=== PATIENT | female | born 1995 ===

== ENCOUNTER 2017-07-24 15:07 | Emergency (ER) | payer OTHER ==
[~2017-07-24] VITALS: Ht 157.5 cm; Wt 104.3 kg
[~2017-07-24 15:07] MED LIST: Ibuprofen PO; NITR-65 PO; ONDA-42 SL; PREN1TAB71 PO
--- OUTSIDE RECORDS SUMMARY | 2017-07-24 15:12 | XMS REPORT ---
Author Author MESHA GRUBER Organization [employer] Address Unknown Phone Unavailable Care Team Providers Care Contract Writer Name Role Phone MESHA GRUBER CP Unavailable Allergies, Adverse Reactions, Alerts Substance Reaction Event Type N.K.D.A. Info Not Available Non Drug Allergy Problems Problem Type Condition Code Onset Dates Condition Status Assessment Obesity due to excess calories, unspecified obesity severity E66.09 Active Problem Obesity due to excess calories, unspecified obesity severity E66.09 Active Medications Medication Code System Code Instructions Start Date End Date Status Dosage Phentermine HCl [facility] [address]-39 37.5 MG Orally Once a day Mar 03, 2016 1 tablet Procedures Procedure Coding System Code Date Office Visit, Est Pt., Level 3 CPT-4 23438 Mar 03, 2016 Vital Signs Date/Time: Mar 03, 2016 Cardiac Monitoring Heart Rate 88 bpm Weight 209.9 lbs Height 62 in BMI 38.39 Index Blood Pressure Diastolic 80 mmHg Blood Pressure Systolic 132 mmHg Results No Known Results Summary Purpose [employer] Submission
--- OUTSIDE RECORDS SUMMARY | 2017-07-24 15:12 | XMS REPORT ---
Author Author MESHA GRUBER Organization [employer] Address Unknown Phone Unavailable Care Team Providers Care Title One Reading Teacher Name Role Phone MESHA GRUBER CP Unavailable [...] Date End Date Status Dosage Phentermine HCl [facility] [address]-06 37.5 MG Orally Once a day Feb 19, 2016 1 tablet Procedures Procedure Coding System Code Date Office Visit, Est Pt., Level 3 CPT-4 21590 Jan 22, 2016 Vital Signs Date/Time: Jan 22, 2016 Cardiac Monitoring Heart Rate 84 bpm Weight 207.9 lbs Height 62 in BMI 38.02 Index Blood Pressure Diastolic 80 mmHg Blood Pressure Systolic 130 mmHg Results No Known Results Summary Purpose [employer] Submission
--- OUTSIDE RECORDS SUMMARY | 2017-07-24 15:12 | XMS REPORT ---
Author Author MESHA GRUBER [facility] Address [address] [place] [address] Care Team Providers Care Node Js Developer Name Role Phone MESHA GRUBER Unavailable PROBLEMS Type Condition ICD9-CM Code [id number] Code Onset Dates Condition Status SNOMED Code Problem Obesity due to excess calories, unspecified obesity severity E66.09 Active 334629674 ALLERGIES No Known Allergies SOCIAL HISTORY Never Assessed PLAN OF CARE Activity Details Follow Up 4 Weeks Reason:weight VITAL SIGNS Height 62 in 2016-09-28 Weight 219 lbs 2016-09-28 Temperature 98.2 degrees Fahrenheit 2016-09-28 Heart Rate 90 bpm 2016-09-28 Respiratory Rate 18 2016-09-28 BMI 40.05 kg/m2 2016-09-28 Blood pressure systolic 124 mmHg 2016-09-28 Blood pressure diastolic 84 mmHg 2016-09-28 MEDICATIONS Medication Instructions Dosage Frequency Start Date End Date Duration Status Phentermine HCl 37.5 MG Orally Once a day 1 tablet 24h Active RESULTS No Results PROCEDURES No Known procedures IMMUNIZATIONS No Known Immunizations MEDICAL (GENERAL) HISTORY Type Description Date Medical History denies Hospitalization History child
--- OUTSIDE RECORDS SUMMARY | 2017-07-24 15:12 | XMS REPORT ---
Author Author MESHA GRUBER Organization [employer] Address Unknown Phone Unavailable Care Team Providers Care Commercial Journeyman Electrician Name Role Phone MESHA GRUBER CP Unavailable [...] Date End Date Status Dosage Phentermine HCl [facility] [address]-23 37.5 MG Orally Once a day December 25, 2015 Jan 22, 2016 1 tablet Procedures Procedure Coding System Code Date Office Visit, New Pt., Level 2 CPT-4 99840 December 25, 2015 Vital Signs Date/Time: December 25, 2015 Cardiac Monitoring Heart Rate 84 bpm Weight 222.5 lbs Height 62 in BMI 40.69 Index Blood Pressure Diastolic 82 mmHg Blood Pressure Systolic 128 mmHg Results No Known Results Summary Purpose [employer] Submission
--- OUTSIDE RECORDS SUMMARY | 2017-07-24 15:12 | XMS REPORT ---
Author Author OMA WINTERS [facility] Address Unknown Care Team Providers Care Christmas Bell Ringer Name Role Phone OMA WINTERS Unavailable PROBLEMS Type Condition ICD9-CM Code [id number] Code Onset Dates Condition Status SNOMED Code Problem Obesity due to excess calories, unspecified obesity severity E66.09 Active 773461394 Assessment Dental examination Z01.20 Mar, Active 18964727 ALLERGIES Unknown Allergies SOCIAL HISTORY No smoking Hx information available PLAN OF CARE VITAL SIGNS MEDICATIONS Unknown Medications RESULTS No Results PROCEDURES Procedure Date Ordered Related Diagnosis Body Site Billing Notes on claim Apr 02, 2016 IMMUNIZATIONS No Known Immunizations
--- OUTSIDE RECORDS SUMMARY | 2017-07-24 15:12 | XMS REPORT ---
Author Author OMA WINTERS [facility] Address Unknown Care Team Providers Care Marketing Developer Name Role Phone OMA WINTERS Unavailable PROBLEMS Type Condition ICD9-CM Code LOP19-SH Code Onset Dates Condition Status SNOMED Code Problem Obesity due to excess calories, unspecified obesity severity E66.09 Active 302568705 Assessment Dental examination Z01.20 Dec, Active 457145195 ALLERGIES Substance Reaction Event Type Date Status N.K.D.A. Unknown Non Drug Allergy Dec, Unknown SOCIAL HISTORY No smoking Hx information available PLAN OF CARE VITAL SIGNS Height 62 in 2016-01-09 Blood pressure systolic 119 mmHg 2016-01-09 Blood pressure diastolic 75 mmHg 2016-01-09 MEDICATIONS Medication Instructions Dosage Frequency Start Date End Date Duration Status Phentermine HCl 37.5 MG Orally Once a day 1 tablet 24h Nov,Dec 28 days Active RESULTS No Results PROCEDURES Procedure Date Ordered Related Diagnosis Body Site LTD ORAL EVALUATION - PROBLEM FOCUS Jan 09, 2016 INTRAORL-PERIAPICAL 1 FILM 63860 Jan 09, 2016 PANORAMIC FILM SEE ALSO CODE 54226 Jan 09, 2016 IMMUNIZATIONS No Known Immunizations
--- OUTSIDE RECORDS SUMMARY | 2017-07-24 15:13 | XMS REPORT | Continuity of Care Document ---
Author Author [facility] Address Unknown Phone Unavailable Allergies Active Description Code Type Severity Reaction Onset Reported/Identified Relationship to Patient Clinical Status Yes No Known Drug Allergies [id number] Drug Allergy Unknown N/A 08/22/2013 Medications There is no data. Problems Date Dx Coded Attending Type Code Diagnosis Diagnosed By 12/30/2010 MEL GREEN APRN 372.14 CONJUNCTIVITIS CHRONIC ALLERGIC 12/30/2010 MEL GREEN APRN 477.9 ALLERGIC RHINITIS 04/09/2011 MEL GREEN APRN 599.0 URINARY TRACT INFECTION 04/09/2011 MEL GREEN APRN V25.9 CONTRACEPTION MANAGEMENT 04/01/2012 MEL GREEN APRN 133.0 SCABIES 08/22/2013 LEIGH BARNES DO Ot 558.9 NONINF GASTROENTERIT NEC 08/22/2013 LEIGH BARNES DO Ot 599.0 URIN TRACT INFECTION NOS 08/22/2013 LEIGH BARNES DO Ot 646.63 INFECTION-ANTEPARTUM 08/22/2013 LEIGH BARNES DO Ot 648.93 OTH CURR COND-ANTEPARTUM 08/22/2013 LEIGH BARNES DO Ot 787.01 NAUSEA WITH VOMITING 10/04/2013 MAN MCCLELLAND, CARMEN Fernando Ot 620.2 OVARIAN CYST NEC/NOS 10/04/2013 MAN MCCLELLAND, CARMEN Fernando Ot 646.83 PREG COMPL NEC-ANTEPART 10/04/2013 MAN MCCLELLAND, CARMEN Fernando Ot 789.00 ABDOMINAL PAIN, UNSPECIFIED SITE 02/12/2014 MAN MCCLELLAND, CARMEN Fernando Ot 558.9 NONINF GASTROENTERIT NEC 02/12/2014 MAN MCCLELLAND, CARMEN Fernando Ot 646.83 PREG COMPL NEC-ANTEPART 03/02/2014 MAN MCCLELLAND, CARMEN Fernando Ot 285.9 ANEMIA NOS 03/02/2014 MAN MCCLELLAND, CARMEN Fernando Ot 648.21 ANEMIA-DELIVERED 03/02/2014 CARMEN CONWAY MD Ot V27.0 DELIVER-SINGLE LIVEBORN 05/13/2014 MAN MCCLELLAND, CARMEN Fernando Ot 486 07/02/2014 MAN MCCLELLAND, CARMEN Fernando Ot 486 07/11/2014 MAN MCCLELLAND, CARMEN Fernando Ot 486 04/20/2015 MAN MCCLELLAND, CARMEN Feranndo Ot O70.0 FIRST DEGREE PERINEAL LACERATION DURING 04/20/2015 MAN MCCLELLAND, CARMEN Fernando Ot Z23 ENCOUNTER FOR IMMUNIZATION 04/20/2015 MAN MCCLELLAND, CARMEN Fernando Ot Z37.0 SINGLE LIVE 04/20/2015 MAN MCCLELLAND, CARMEN Fernando Ot Z3A.39 39 WEEKS GESTATION OF 04/21/2015 CARMEN CONWAY MD Ot 642.93 04/21/2015 CARMEN CONWAY MD Ot 646.83 04/21/2015 MAN MCCLELLAND, CARMEN Fernando Ot 783.21 04/21/2015 CARMEN CONWAY MD Ot 784.0 04/21/2015 CARMEN CONWAY MD Ot 787.01 04/21/2015 CARMEN CONWAY MD Ot V28.81 04/21/2015 Ot 620.2 04/21/2015 Ot 646.83 04/21/2015 Ot 789.00 04/21/2015 MAN MCCLELLAND, CARMEN Fernando Ot V28.81 04/21/2015 MAN MCCLELLAND, CARMEN Fernando Ot 486 04/21/2015 MAN MCCLELLAND, CARMEN Fernando Ot V22.1 04/21/2015 MAN MCCLELLAND, CARMEN Fernando Ot V28.81 05/06/2015 MAN MCCLELLAND, CARMEN Fernando Ot 642.93 05/06/2015 MAN MCCLELLAND, CARMEN Fernando Ot 646.83 05/06/2015 MAN MCCLELLAND, CARMEN Fernando Ot 783.21 05/06/2015 MAN MCCLELLAND, CARMEN Fernando Ot 784.0 05/06/2015 MAN MCCLELLAND, CARMEN Fernando Ot 787.01 05/06/2015 MAN MCCLELLAND, CARMEN Fernando Ot V28.81 05/06/2015 Ot 620.2 05/06/2015 Ot 646.83 05/06/2015 Ot 789.00 05/06/2015 MAN MCCLELLAND, CARMEN Fernando Ot V28.81 05/06/2015 MAN MCCLELLAND, CARMEN Fernando Ot 486 05/06/2015 MAN MCCLELLAND, CARMEN Fernando Ot V22.1 05/06/2015 MAN MCCLELLAND, CARMEN Fernando Ot V28.81 05/06/2015 MAN MCCLELLAND, CARMEN Fernando Ot 642.93 05/06/2015 MAN MCCLELLAND, CARMEN Fernando Ot 646.83 05/06/2015 MAN MCCLELLAND, CARMEN J Ot 783.21 05/06/2015 MAN MCCLELLAND, CARMEN J Ot 784.0 05/06/2015 MAN MCCLELLAND, CARMEN J Ot 787.01 05/06/2015 MAN MCCLELLAND, CARMEN J Ot V28.81 05/06/2015 Ot 620.2 05/06/2015 Ot 646.83 05/06/2015 Ot 789.00 05/06/2015 MAN MCCLELLAND, CARMEN J Ot V28.81 05/06/2015 MAN MCCLELLAND, CARMEN J Ot 486 05/06/2015 MAN MCCLELLAND, CARMEN J Ot V22.1 05/06/2015 MAN MCCLELLAND, CARMEN J Ot V28.81 05/19/2015 MAN MCCLELLAND, CARMEN J Ot 642.93 05/19/2015 MAN MCCLELLAND, CARMEN J Ot 646.83 05/19/2015 MAN MCCLELLAND, CARMEN J Ot 783.21 05/19/2015 MAN MCCLELLAND, CARMEN J Ot 784.0 05/19/2015 MAN MCCLELLAND, CARMEN J Ot 787.01 05/19/2015 MAN MCCLELLAND, CARMEN J Ot V28.81 05/19/2015 Ot 620.2 05/19/2015 Ot 646.83 05/19/2015 Ot 789.00 05/19/2015 MAN MCCLELLAND, CARMEN J Ot V28.81 05/19/2015 MAN MCCLELLAND, CARMEN J Ot 486 05/19/2015 MAN MCCLELLAND, CARMEN J Ot V22.1 05/19/2015 MAN MCCLELLAND, CARMEN J Ot V28.81 05/27/2015 MAN MCCLELLAND, CARMEN J Ot 642.93 05/27/2015 MAN MCCLELLAND, CARMEN J Ot 646.83 05/27/2015 MAN MCCLELLAND, CARMEN J Ot 783.21 05/27/2015 MAN MCCLELLAND, CARMEN J Ot 784.0 05/27/2015 MAN MCCLELLAND, CARMEN J Ot 787.01 05/27/2015 MAN MCCLELLAND, CARMEN J Ot V28.81 05/27/2015 Ot 620.2 05/27/2015 Ot 646.83 05/27/2015 Ot 789.00 05/27/2015 MAN MCCLELLAND, CARMEN J Ot V28.81 05/27/2015 MAN MCCLELLAND, CARMEN J Ot 486 05/27/2015 MAN MCCLELLAND, CARMEN J Ot V22.1 05/27/2015 MAN MCCLELLAND, CARMEN J Ot V28.81 12/04/2015 MAN MD, CARMEN J Ot 642.93 HYPERTENS NOS-ANTEPARTUM 12/04/2015 CARMEN CONWAY MD Ot 646.83 PREG COMPL NEC-ANTEPART 12/04/2015 CARMEN CONWAY MD Ot 783.21 LOSS OF WEIGHT 12/04/2015 CARMEN CONWAY MD Ot 784.0 HEADACHE 12/04/2015 CARMEN CONWAY MD Ot 787.01 NAUSEA WITH VOMITING 12/04/2015 CARMEN CONWAY MD Ot V28.81 ENCOUNTER FOR ANATOMIC SURVEY 12/04/2015 Ot 620.2 OVARIAN CYST NEC/NOS 12/04/2015 Ot 646.83 PREG COMPL NEC-ANTEPART 12/04/2015 Ot 789.00 ABDOMINAL PAIN, UNSPECIFIED SITE 12/04/2015 CARMEN CONWAY MD Ot V28.81 ENCOUNTER FOR ANATOMIC SURVEY 12/04/2015 CARMEN CONWAY MD Ot 486 PNEUMONIA, ORGANISM NOS 12/04/2015 CARMEN CONWAY MD Ot V22.1 SUPERVIS OTH NORMAL PREG 12/04/2015 CARMEN CONWAY MD Ot V28.81 ENCOUNTER FOR ANATOMIC SURVEY 12/04/2015 CARMEN CONWAY MD Ot V28.81 ENCOUNTER FOR ANATOMIC SURVEY Procedures Code Description Performed By Performed On 73.59 03/01/2014 [id number] 04/18/2015 Results There is no data. Encounters ACCT No. Visit Date/Time Discharge Status Pt. Type Provider Facility Loc./Unit Complaint [id number] 04/01/2012 10:01:00 04/01/2012 23:59:59 CLS Outpatient MEL GREEN APRN [id number] 04/18/2015 07:41:00 04/20/2015 12:14:00 DIS Inpatient CARMEN CONWAY MD [facility] LDRP [id number] 12/09/2014 12:10:00 12/09/2014 23:59:59 CLS Outpatient CARMEN CONWAY MD [facility] RAD [id number] 12/06/2014 11:37:00 12/06/2014 23:59:59 CLS Outpatient CARMEN CONWAY MD [facility] LAB [id number] 05/09/2014 10:49:00 05/09/2014 23:59:59 CLS Outpatient CARMEN CONWAY MD [facility] RAD [id number] 02/28/2014 14:37:00 03/02/2014 16:00:00 DIS Inpatient CARMEN CONWAY MD [facility] LDRP [id number] 02/12/2014 14:27:00 02/12/2014 16:55:00 DIS Outpatient CARMEN CONWAY MD [facility] WSo [id number] 10/19/2013 10:02:00 10/19/2013 23:59:59 CLS Outpatient CARMEN CONWAY MD [facility] RAD [id number] 07/06/2013 14:26:00 10/04/2013 00:01:00 DIS Outpatient CARMEN CONWAY MD [facility] RAD [id number] 09/12/2013 11:05:00 09/12/2013 23:59:59 CLS Outpatient CARMEN CONWAY MD [facility] RAD [id number] 08/28/2013 11:27:00 08/28/2013 23:59:59 CLS Outpatient CARMEN CONWAY MD [facility] LAB [id number] 08/22/2013 11:18:00 08/22/2013 13:46:00 DIS Emergency MOLLY QUINONES LEIGH Graham [facility] ER [id number] 10/05/2013 14:00:00 Document Registration
--- NOTE | 2017-07-24 15:53 | ED Back Pain ---
General Chief Complaint: Back Problems Stated Complaint: LOWER BACK INJ Nursing Triage Note: c/o low back pain. 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 Pt in no acute distress. Nursing Sepsis Screen: No Definite Risk Source of Information: Patient, Other (patient's coworker.) Exam Limitations: No Limitations History of Present Illness Date Seen by Provider: Jul 24, 2017 Time Seen by Provider: 15:49 Initial Comments This 22-year-old female presents after 6 a.m. 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 Patient denies weakness or paresthesias in her lower extremities. She denies loss of bowel or bladder function. Patient denies similar injury in the past. Patient's pain is sharp in nature and made worse with movement of the low back. Allergies and Home Medications Allergies Coded Allergies: No Known Drug Allergies (Unverified , 08/22/13) Home Medications Vit/Fe Fumarate/Fa 1 Each Tablet, 1 EACH PO DAILY, (Reported) [Ibuprofen] 600 MG TAB, 600 MG PO Q6H Prescribed by: CARMEN CONWAY on 03/02/14 0855 Constitutional: No chills, No fever EENTM: No ear pain Respiratory: No cough Cardiovascular: No chest pain Gastrointestinal: No abdominal pain, No nausea, No vomiting Genitourinary: no symptoms reported Musculoskeletal: see HPI, back pain Skin: No rash Psychiatric/Neurological: No Symptoms Reported Past Tzdlodl-Ffupnc-Rwumxo Hx Patient Social History Alcohol Use: Denies Use Recreational Drug Use: No Smoking Status: Never a Smoker Recent Foreign Travel: No Contact w/Someone Who Travel: No Recent Infectious Disease Expo: No Immunizations Up To Date Tetanus Booster (TDap): Unknown PED Vaccines UTD: Yes Date of Influenza Vaccine: Mar 03, 2015 Surgeries History of Surgeries: No Respiratory History of Respiratory Disorde: No Cardiovascular History of Cardiac Disorders: No Neurological History of Neurological Disord: No Reproductive System Hx Reproductive Disorders: No Gastrointestinal History of Gastrointestinal Di: No Musculoskeletal History of Musculoskeletal Dis: No Endocrine History of Endocrine Disorders: No Cancer History of Cancer: No Psychosocial History of Psychiatric Problem: No Integumentary History of Skin or Integumenta: No Blood Transfusions History of Blood Disorders: No Reviewed Nursing Assessment Reviewed/Agree w Nursing PMH: Yes Family Medical History Family Medial History: Congenital disease G8 BROTHER (Hemophelia) G8 BROTHER (Hemophelia) Diabetes mellitus 19 FATHER 19 MOTHER Hypertension 19 FATHER No Family History of: AIDS Abdominal aortic aneurysm [place]'s disease Alcoholism Alzheimer's disease Aphasia Arthritis Asthma Cancer of mouth Cardiovascular disease Cataracts Colon cancer Completed stroke Congenital heart disease Coronary thrombosis Cystic fibrosis Deafness or hearing loss Dementia Drug abuse Dysphasia Fibrocystic disease of breast Gastroenteritis Glaucoma Headache disorder Hypercholesterolemia Infertility Kidney disease Myocardial infarction Neoplasm Not obtainable due to adoption Osteoporosis Parkinson's disease Prostate cancer Psychosocial problem Respiratory disorder Seizure disorder Severe allergy Thyroid disease Tuberculosis Visual disorder Physical Exam Vital Signs Vital Signs - First Documented 07/24/17 15:23 Temp 97.5 Pulse 70 Resp 16 B/P (MAP) 130/96 (107) Pulse Ox 98 O2 Delivery Room Air Capillary Refill : Less Than 3 Seconds General Appearance: No Apparent Distress, WD/WN HEENT: Normal ENT Inspection Neck: Normal Inspection Cardiovascular: Regular Rate, Rhythm Respiratory: Lungs Clear Gastrointestinal: Normal Bowel Sounds, Non Tender Back: Normal Inspection, Muscle Spasm (there is pain over the lower lumbar region. There is no posterior process tenderness. There is a normal neurovascular exam lower extremities.) Extremity: Normal Inspection, Normal Range of Motion Neurologic/Psychiatric: Alert, Oriented x3, No Motor/Sensory Deficits, Normal Mood/Affect Skin: Normal Color, Warm/Dry Progress/Results/Core Measures Results/Orders Vital Signs/I&O Vital Sign - Last 12Hours 07/24/17 15:23 Temp 97.5 Pulse 70 Resp 16 B/P (MAP) 130/96 (107) Pulse Ox 98 O2 Delivery Room Air Blood Pressure Mean: 107 Progress Note : Time: 15:54 Progress Note The patient declined radiographs. He did not want a shot for her pain. I recommended close follow-up with Torri in the morning at 9 a.m. I gave the patient a prescription for Flexeril and hydrocodone for tonight. I asked that she call or return if any problems or questions. Departure Impression Impression: Primary Impression: Back strain Qualified Codes: S39.012A - Strain of muscle, fascia and tendon of lower back , initial encounter Disposition: 01 HOME, SELF-CARE Condition: Unchanged Departure-Patient Inst. Decision time for Depature: 15:55 Referrals: NO,LOCAL PHYSICIAN (PCP) Primary Care Physician Patient Instructions: Low Back Pain (DC), Lumbar Muscle Strain (DC) Add. Discharge Instructions: Vicodin and Flexeril. Follow-up with Dr. Saenz the morning. Ice to the low back today. Return if any problems or questions. All discharge instructions reviewed with patient and/or family. Voiced understanding. CHAO RICHEY MD Jul 24, 2017 15:53
[2017-07-24 16:18] VITALS: BP 130/96
== END 2017-07-24 16:18 | disposition home or self-care (01) ==
LOC: EDUNIT# 15:07 → ER 15:08
DX: S39.012A Strain of muscle, fascia and tendon of lower back, initial encounter (principal); X50.0XXA Overexertion from strenuous movement or load, initial encounter

== ENCOUNTER → 2022-06-10 | Outpatient (CLI) | payer BC ==
--- NOTE | 2022-06-10 16:18 | Diagnostic Imaging Report ---
INDICATION: High fundal height for dates. TECHNIQUE: Multiple real-time grayscale images were obtained over the gravid uterus. COMPARISON: None. FINDINGS: There is a single live fetus in a cephalic presentation. heart rate was recorded at 149 bpm. Placenta is posterior. No previa is identified. Amniotic fluid index is 21.4 cm. Biophysical profile was performed with a normal score of 8 out of 8. Biometrical measurements are as follows: Biparietal 7.79 cm, age 31 weeks 2 days. Head circumference 27.80 cm, age 30 weeks 3 days. Abdominal circumference 25.44 cm, age 29 weeks 5 days. Femur length 5.82 cm, age 30 weeks 3 days. Sonographic estimate age: 30 weeks 4 days. Sonographic estimated date of delivery: 08/15/2022. Estimated Weight: 1507 gm (+/- 221 gm). LMP percentile: 89%. heart rate: 149 beats per minute. number: 1 of 1. IMPRESSION: Single live IUP 30-31 weeks gestational age with an estimated date of confinement, sonographically, of 08/15/2022. Biophysical profile score is normal at 8 out of 8. Dictated by: Dictated on workstation # [id number]
== END ==
LOC: RAD 11:50
PROVIDERS: ATTEND Obstetrics & Gynecology
DX: O34.599 Maternal care for other abnormalities of gravid uterus, unspecified trimester (principal); Z3A.00 Weeks of gestation of pregnancy not specified
CPT/HCPCS: 76805; 76819

== ENCOUNTER → 2022-07-30 | Outpatient (CLI) | payer BC | LOC: LABNPT 12:10 | PROVIDERS: ATTEND Obstetrics & Gynecology | DX: O13.9 Gestational [pregnancy-induced] hypertension without significant proteinuria, unspecified trimester (principal); Z3A.00 Weeks of gestation of pregnancy not specified | CPT/HCPCS: 82570; 84156 ==

== ENCOUNTER 2022-08-17 06:04 | Inpatient (IN) | payer BC ==
[2022-08-17] VITALS (48 sets, daily range): BP systolic 97–189; BP diastolic 52–106
[~2022-08-17] VITALS: Ht 157 cm; Wt 125.2 kg
--- NOTE | 2022-08-17 06:26 | History & Physical-OB/GYN ---
REBECA DELA CRUZ 08/17/22 0626: OB - Chief Complaint & HPI Date/Time Date of Admission: Date of Admission: Aug 17, 2022 at 06:04 Date seen by a Provider: Aug 17, 2022 Time Seen by a Provider: 06:35 Chief Complaint/History OB-Reason for Admission/Chief: Induction of Labor Hx : 3 Hx Para: 2 Expected Date of Delivery: Aug 29, 2022 Gestational Age in Weeks: 38 Gestational Age in Days: 2 Indication for induction: medical complication (gestational diabetes) History of Labs B+ Antibody Neg VDRL NR HBsAg NR HIV NR G/C Neg RI GBS Neg Allergies and Home Medications Allergies Coded Allergies: No Known Drug Allergies (Unverified , 08/22/13) Patient Home Medication List Home Medication List Reviewed: Yes Glyburide (Glyburide) 2.5 Mg Tablet, (Reported) Entered as Reported by: SOY CASTAÑEDA on 08/17/22 0740 Last Action: Reviewed Vit/Fe Fumarate/Fa ( Vitamin Tablet) 1 Each Tablet, 1 EACH PO DAILY, (Reported) Entered as Reported by: DEION SPENCE on 02/12/14 1558 Last Action: Reviewed Discontinued Medications [Ibuprofen] 600 MG TAB, 600 MG PO Q6H Discontinued Reason: No Longer Taking Prescribed by: CARMEN CONWAY on 03/02/14 0855 Last Action: Discontinued OB - History Hx of Present Care: Yes Ultrasounds: Normal mid trimester US Obstetrical Complications: Gestational Diabetes Medical Complications: None Information Pre-Hospital Medication Admins: Glyburide Induced Hypertension: No Maternal Gestational Diabetes: Yes Hemorrhage: No Obstetrical History Hx : 3 Hx Para: 2 Hx # Term Pregnancies: 2 Hx # Pregnancies: 0 Number of Living Children: 2 Hx Termination: No Hx Total # of Abortions (Spona: 0 Hx Multiple Gestation: No Hx Ectopic : No Hx Stillbirth: No Hx Complication: No Hx Induced Hypertens: No Hx Maternal Gestational Diabet: No Hx Hemorrhage: No Delivery History Hx Dystocia: No Hx Forceps Assisted Delivery: No Hx Vacuum Extraction Assisted: No Hx Placenta Abnormality: No Hx Distress: No Hx Large For Gestational Age I: No Hx Small for Gestational Age I: No Hx Section: No Hx Vaginal Delivery Post C-Sec: No Hx Blood Disorders: No Patient Past Medical History NC Social History/Family History Alcohol Use: Denies Use Recreational Drug Use: No Smoking Cessation: Never smoker Immunizations Hepatitis A: No Hepatitis B: No Tetanus Booster (TDap): Unknown Rubella: immune RPR/VDRL: Negative GBS Status: Negative HBsAG: Negative OB - Admission Exam Physical Exam HEENT: PERRLA Heart: Rhythm Normal Lungs: Clear Abdomen: Gravid Extremities: Edema Reflexes: Normal Heart Rate: 140's Accelerations: Accelerations Present Decelerations: Early Decelerations Short Term Variability: Present Head Of Science Variability: Average (6-25) Contractions on Admission: >10 Minutes Apart OB - Assessment/Plan/Diagnosis Assessment Assessment: induction of labor Admission Dx at 38 weeks 2 days gestational age IOL secondary to gestational diabetes GBS Neg Otherwise uncomplicated Admission Status: Inpatient Order (span 2 midnights) Reason for Inpatient Admission: IOL secondary to gestational diabetes Plan Plan: Induction YASH KELLY DO 08/17/22 0909: OB - Chief Complaint & HPI Chief Complaint/History Admission Nurse Assessment Rev: Yes Allergies and Home Medications Allergies Coded Allergies: No Known Drug Allergies (Unverified , 08/22/13) Patient Home Medication List Glyburide (Glyburide) 2.5 Mg Tablet, (Reported) Entered as Reported by: SOY CASTAÑEDA on 08/17/22 0740 Last Action: Reviewed Vit/Fe Fumarate/Fa ( Vitamin Tablet) 1 Each Tablet, 1 EACH PO DAILY, (Reported) Entered as Reported by: DEION SPENCE on 02/12/14 1558 Last Action: Reviewed Discontinued Medications [Ibuprofen] 600 MG TAB, 600 MG PO Q6H Discontinued Reason: No Longer Taking Prescribed by: CARMEN CONWAY on 03/02/14 0855 Last Action: Discontinued Supervisory-Addendum Brief Verification & Attestation Participated in pt care: history Personally performed: exam Care discussed with: Medical Student Procedures: n/a Results interpretation: Verified all documentation Verification and Attestation of Medical Student E/M Service A medical student performed and documented this service in my presence. I reviewed and verified all information documented by the medical student and made modifications to such information, when appropriate. I personally performed the physical exam and medical decision making. Yash Kelly Aug 17, 2022,09:09 REBECA DELA CRUZ Aug 17, 2022 06:26 YASH KELLY DO Aug 17, 2022 09:09
[2022-08-17] MEDS ORDERED: LIDOCAINE 1% INJ 20 ML VIAL IJ PRN (07:30)
[2022-08-17 07:33] LABS: BASOPHILS % (AUTO) 1 % (0-10); EOSINOPHILS # (AUTO) 0.1 10^3/uL (0.0-0.3); EOSINOPHILS % (AUTO) 2 % (0-10); HEMATOCRIT 33 % (35-52); HEMOGLOBIN 10.9 g/dL (11.5-16.0); LYMPHOCYTES # (AUTO) 2.1 10^3/uL (1.0-4.0); LYMPHOCYTES % (AUTO) 28 % (12-44); MEAN CORPUSCULAR HEMOGLOBIN 28 pg (25-34); MEAN CORPUSCULAR HGB CONC 33 g/dL (32-36); MEAN CORPUSCULAR VOLUME 85 fL (80-99); MEAN PLATELET VOLUME 11.5 fL (9.0-12.2); MONOCYTES # (AUTO) 0.8 10^3/uL (0.0-1.0); MONOCYTES % (AUTO) 10 % (0-12); NEUTROPHILS # (AUTO) 4.6 10^3/uL (1.8-7.8); NEUTROPHILS % (AUTO) 60 % (42-75); PLATELET COUNT 220 10^3/uL (130-400); WHITE BLOOD COUNT 7.7 10^3/uL (4.3-11.0)
[2022-08-17] MEDS ORDERED: GLBR2.5T (07:40)
[2022-08-17] MEDS ORDERED: OXYTOCIN PRE-MIX DRIP 500 ML IV SCH ×2 (07:45→17:00)
[2022-08-17 07:48] LABS: BILIRUBIN,URINE NEGATIVE (NEGATIVE); CLARITY,URINE CLEAR; COLOR,URINE YELLOW; GLUCOSE, URINE (UA) NEGATIVE (NEGATIVE); KETONES,URINE TRACE (NEGATIVE); LEUKOCYTE ESTERASE ,URINE 1+ (NEGATIVE); NITRITE,URINE NEGATIVE (NEGATIVE); PROTEIN,URINE NEGATIVE (NEGATIVE)
[2022-08-17] MEDS: D5 LR IV SOLUTION 1,000 ML IV SCH ×2 (07:55→15:54)
[2022-08-17 07:57] LABS: BACTERIA,URINE MODERATE /HPF
[2022-08-17] MEDS ORDERED: hydrALAZINE (APESOLINE) 20 MG/ML VIAL IV ONE ×2 (12:00→17:45)
[2022-08-17] MEDS ORDERED: CATHETER FLUSH 10 ML SYR IV SCH ×2 (14:00→22:00)
[2022-08-17] MEDS ORDERED: LIDOCAINE 1% INJ 10 ML VIAL ONE (16:19)
--- NOTE | 2022-08-17 16:57 | OB Labor & Delivery Record ---
L&D History Date of Service Date of Service: Aug 17, 2022 History Expected Date of Delivery: Aug 29, 2022 Gestational Age in Weeks: 38 Hx : 3 Hx Para: 2 Complications Events: Gestational Diabetes, Routine care Operative Indications (Cesarea: N/A-Vaginal Delivery Intrapartal Events: None L&D Stage1 Stage One Onset of Labor - Date: Aug 17, 2022 Monitors and Tracing Monitor Mode: External Heart Rate: 145 Monitor Accelerations: Uniform Monitor Decelerations: Variable Retirement Variability: Average (6-10) Short Term Variability: Present Presentation: Vertex Vital Signs VS - Last 72 Hours, by Label 08/17/22 08/17/22 08/17/22 08/17/22 07:00 07:56 08:13 08:27 Temp 35.9 36.2 Pulse 72 71 70 68 Resp 18 18 18 18 B/P (MAP) 145/87 (106) 155/86 (109) 157/87 (110) Pulse Ox 97 O2 Delivery Room Air Room Air Room Air Room Air 08/17/22 08/17/22 08/17/22 08/17/22 08:56 09:12 09:28 09:42 Temp 36.3 Pulse 71 68 80 77 Resp 18 18 18 18 B/P (MAP) 150/87 (108) 152/88 (109) 144/82 (102) 151/87 (108) O2 Delivery Room Air Room Air Room Air Room Air 08/17/22 08/17/22 08/17/22 08/17/22 09:57 10:28 10:41 10:56 Temp 36.3 Pulse 68 64 68 78 Resp 18 18 18 18 B/P (MAP) 151/106 (121) 156/87 (110) 153/86 (108) 145/82 (103) O2 Delivery Room Air Room Air Room Air Room Air 08/17/22 08/17/22 08/17/22 08/17/22 11:13 11:18 11:28 11:56 Temp 36.2 Pulse 66 70 65 65 Resp 18 18 18 18 B/P (MAP) 189/91 (123) 182/95 (124) 172/86 (114) 131/79 (96) O2 Delivery Room Air Room Air Room Air Room Air 08/17/22 08/17/22 08/17/2221/23 12:11 12:26 12:41 12:56 Pulse 82 75 84 81 Resp 18 18 18 18 B/P (MAP) 112/52 (72) 97/54 (68) 126/58 (80) 155/72 (99) O2 Delivery Room Air Room Air Room Air Room Air 08/17/22 08/17/22 08/17/22 08/17/22 13:13 13:26 13:41 13:56 Pulse 66 86 87 76 Resp 18 18 18 18 B/P (MAP) 138/77 (97) 138/71 (93) 139/85 (103) 139/81 (100) O2 Delivery Room Air Room Air Room Air Room Air Rupture of Membranes Spontaneous Ruture of Membrane: No Amniotic Membrane Rupture Time: 0730 Amniotic Membrane Fluid Desc.: Clear Vaginal Bleeding Description: Normal Show Progress/Notes Patient admitted for IOL due to GDM, she had AROM performed this AM. Followed by pitocin augmentation to max dose of 12 mu, she progressed with no analgesia to complete and + 2 station L&D Stage2 Stage Two Stage II Date: Aug 17, 2022 Monitors and Tracing Monitor Mode: Internal Heart Rate: 145 Monitor Accelerations: Uniform Monitor Decelerations: Variable Development Writer Variability: Average (6-10) Short Term Variability: Present Position: Right Occiput Anterior Presentation: Vertex Cord Descript/Complications Cord Vessel Description: 3 Vessels Delivery Type Infant Delivery Method: Spontaneous Vaginal Anterior Shoulder: Left Episiotomy/Perineal Laceration Laceraction(s)/Extensions: No Condition of Delivery 1 minute Comment: 9 5 minute Comment: 9 Notes Live female infant weight 7lbs 1 oz Condition of Condition of : Living Exam: No Observed Abnormalities Resuscitation Resuscitation: N/A - Spontaneous Resp L&D Stage3 Stage Three Stage III Date: Aug 17, 2022 Pictocin Pitocin Administration mu/min: 8 Pitocin ml/hr: 8 Pitocin Administration Comment: 30 mu wide open after delivery of placenta Placenta Delivery Placenta Delivery: Spontaneous Delivery Summary Summary Estimated blood loss (mL): 250 Attending at delivery: Rachel Pulliam DO Condition of Delivery Examined: Cervix Examined, Uterus Explored Post Hemorrhage: No Condition of Mother stable Condition of (s) stable RACHEL PULLIAM DO Aug 17, 2022 16:57
--- NOTE | 2022-08-17 16:58 | Discharge Inst-Women's Service ---
Discharge Inst-Women's Serv Depart Medication/Instructions New, Converted or Re-Newed RX: Transmitted to Pharmacy Problems Reviewed?: Yes Consults/Follow Up Additional Follow Up: Yes Orders/Referrals Dr. Pulliam in 6 weeks Activity Activity: Activity as Tolerated Driving Instructions: No Driving for 1 Week NO SMOKING: NO SMOKING Nothing Inside Vagina: No Douching, No [place], No Tampons Diet Discharge Diet: No Restrictions Symptoms to Report to : Bleeding Excessive, Pain Increased, Fever Over 101 Degrees F, Vaginal Bleeding Increase, Questions/Concerns For Any Problems or Questions: Contact Your Physician RACHEL PULLIAM DO Aug 17, 2022 16:58
[2022-08-17] MEDS ORDERED: ACET-93 PO (16:59)
[2022-08-17] MEDS ORDERED: IBUPROFEN 600 MG (MOTRIN) TAB PO ONE (16:59)
[2022-08-17] MEDS ORDERED: DIBU30OI TOP (16:59)
[2022-08-17] MEDS ORDERED: IBUP-844 PO (16:59)
[2022-08-17] MEDS ORDERED: BENZ78AE5 TP (16:59)
[2022-08-17] MEDS ORDERED: DOCU100C37 PO (16:59)
[2022-08-17] MEDS ORDERED: NALOXONE 0.4 MG/ML 1 ML (NARCAN) VIAL IV PRN (17:00)
[2022-08-17] MEDS ORDERED: WITCH HAZEL(TUCKS) 40 EA JAR TOP PRN (17:00)
[2022-08-17] MEDS ORDERED: TETANUS,DIPTH,PERTUSS P/F (BOOSTRIX) 0.5 ML VIAL IM ONE (17:00)
[2022-08-17] MEDS ORDERED: ACETAMINOPHEN 500 MG TAB (TYLENOL) PO PRN (17:00)
[2022-08-17] MEDS ORDERED: DIBUCAINE 1% OINTMENT 28 GM TUBE TOP PRN (17:00)
[2022-08-17] MEDS ORDERED: BENZOCAINE/MENTHOL (DERMOPLAST) 56 ML CAN TP PRN (17:00)
[2022-08-17] MEDS ORDERED: MEASLES,MUMPS,RUBELLA 1 EA INJ SQ ONE (17:00)
[2022-08-17] MEDS: IBUPROFEN 600 MG (MOTRIN) TAB PO SCH ×2 (17:01→23:27)
[2022-08-17] MEDS ORDERED: hydrALAZINE (APESOLINE) 20 MG/ML VIAL ONE ×2 (17:49→23:53)
[2022-08-17] MEDS: DOCUSATE SODIUM 100 MG (COLACE) CAP PO SCH (21:20)
[2022-08-17] MEDS ORDERED: LABETALOL 200 MG (NORMODYNE) TAB PO ONE (23:54)
[2022-08-18] MEDS ORDERED: LABETALOL 200 MG (NORMODYNE) TAB PO ONE
[2022-08-18] MEDS ORDERED: hydrALAZINE (APESOLINE) 20 MG/ML VIAL IV ONE
[2022-08-18 00:40] VITALS: BP 144/70
[2022-08-18 05:00] VITALS: BP 130/67
[2022-08-18] MEDS: IBUPROFEN 600 MG (MOTRIN) TAB PO SCH ×3 (05:00→19:20)
--- NOTE | 2022-08-18 06:47 | Postpartum Progress Note ---
Note Note Day # 1 Subjective: Patient is without complaints. Ambulating, voiding. Tolerating a regular diet without nausea or vomiting. Normal lochia. Pain is well controlled with oral pain medications. Breast feeding. Objective: Lying in bed at time of evaluation, no signs of distress. Physical Exam: General - Alert and oriented, no apparent distress Abdomen - Soft, appropriately tender to palpation, non-distended, fundus firm at umbilicus Extremities - no edema, negative Isaias's bilaterally Assessment: PPD 1 s/p NVD Acute blood loss anemia Plan: Routine care. Encourage breast feeding. Encourage ambulation. Ferrous sulfate supplementation. Plan for discharge tomorrow. Vitals - Labs Vital Signs - I&O Vital Signs Date Time Temp Pulse Resp B/P (MAP) Pulse Ox O2 Delivery O2 Flow Rate FiO2 08/18/22 05:00 36.5 95 18 130/67 (88) 98 Room Air 08/18/22 00:40 76 18 144/70 (94) 98 Room Air 08/17/22 23:45 80 18 187/85 (119) 98 Room Air 08/17/22 23:35 66 18 189/99 (129) 98 Room Air 08/17/22 18:56 83 18 145/68 (93) Room Air 08/17/22 18:52 85 18 134/64 (87) Room Air 08/17/22 18:41 78 18 143/71 (95) Room Air 08/17/22 18:26 90 18 140/78 (98) Room Air 08/17/22 18:11 80 18 139/76 (97) Room Air 08/17/22 17:56 80 18 158/72 (100) Room Air 08/17/22 17:41 72 18 160/75 (103) Room Air 08/17/22 17:26 77 18 162/74 (103) Room Air 08/17/22 17:21 81 18 166/74 (104) Room Air 08/17/22 16:56 80 18 156/83 (107) Room Air 08/17/22 16:41 80 18 159/82 (107) Room Air 08/17/22 16:28 113 20 143/73 (96) Room Air 08/17/22 16:12 89 18 181/92 (121) Room Air 08/17/22 15:56 80 18 156/87 (110) Room Air 08/17/22 15:42 75 18 146/88 (107) Room Air 08/17/22 15:26 36.6 82 18 145/90 (108) Room Air 08/17/22 15:12 74 18 139/83 (101) Room Air 08/17/22 14:57 81 18 149/91 (110) Room Air 08/17/22 14:42 85 18 136/84 (101) Room Air 08/17/22 14:27 88 18 169/85 (113) Room Air 08/17/22 14:12 83 18 143/86 (105) Room Air 08/17/22 13:56 36.6 76 18 139/81 (100) Room Air 08/17/22 13:41 87 18 139/85 (103) Room Air 08/17/22 13:26 86 18 138/71 (93) Room Air 08/17/22 13:13 66 18 138/77 (97) Room Air 08/17/22 12:56 81 18 155/72 (99) Room Air 08/17/22 12:41 84 18 126/58 (80) Room Air 08/17/22 12:26 75 18 97/54 (68) Room Air 08/17/22 12:11 82 18 112/52 (72) Room Air 08/17/22 11:56 65 18 131/79 (96) Room Air 08/17/22 11:28 65 18 172/86 (114) Room Air 08/17/22 11:18 36.2 70 18 182/95 (124) Room Air 08/17/22 11:13 66 18 189/91 (123) Room Air 08/17/22 10:56 78 18 145/82 (103) Room Air 08/17/22 10:41 36.3 68 18 153/86 (108) Room Air 08/17/22 10:28 64 18 156/87 (110) Room Air 08/17/22 09:57 68 18 151/106 (121) Room Air 08/17/22 09:42 36.3 77 18 151/87 (108) Room Air 08/17/22 09:28 80 18 144/82 (102) Room Air 08/17/22 09:12 68 18 152/88 (109) Room Air 08/17/22 08:56 71 18 150/87 (108) Room Air 08/17/22 08:27 68 18 157/87 (110) Room Air 08/17/22 08:13 70 18 155/86 (109) Room Air 08/17/22 07:56 36.2 71 18 145/87 (106) Room Air 08/17/22 07:00 35.9 72 18 97 Room Air I & O 08/18/22 07:00 Intake Total 2000 ml Balance 2000 ml Labs Laboratory Tests 08/17/22 07:15: Urine Color YELLOW, Urine Clarity CLEAR, Urine pH 6.0, Urine Specific [place] 1.025H, Urine Protein NEGATIVE, Urine Glucose (UA) NEGATIVE, Urine Ketones TRACEH, Urine Nitrite NEGATIVE, Urine Bilirubin NEGATIVE, Urine Urobilinogen 1.0, Urine Leukocyte Esterase 1+H, Urine RBC (Auto) NEGATIVE, Urine RBC NONE, Urine WBC 5-10H, Urine Squamous Epithelial Cells 10-25H, Urine Crystals NONE, Urine Bacteria MODERATEH, Urine Casts NONE, Urine Mucus NEGATIVE, Urine Culture Indicated NO 08/18/22 06:16: REBECA DELA CRUZ Aug 18, 2022 06:47
[2022-08-18 06:48] LABS: BASOPHILS # (AUTO) 0.1 10^3/uL (0.0-0.1); BASOPHILS % (AUTO) 1 % (0-10); EOSINOPHILS # (AUTO) 0.1 10^3/uL (0.0-0.3); EOSINOPHILS % (AUTO) 1 % (0-10); HEMATOCRIT 32 % (35-52); HEMOGLOBIN 10.4 g/dL (11.5-16.0); LYMPHOCYTES # (AUTO) 1.9 10^3/uL (1.0-4.0); LYMPHOCYTES % (AUTO) 18 % (12-44); MEAN CORPUSCULAR HEMOGLOBIN 28 pg (25-34); MEAN CORPUSCULAR HGB CONC 33 g/dL (32-36); MEAN CORPUSCULAR VOLUME 85 fL (80-99); MEAN PLATELET VOLUME 11.3 fL (9.0-12.2); MONOCYTES # (AUTO) 0.8 10^3/uL (0.0-1.0); MONOCYTES % (AUTO) 8 % (0-12); NEUTROPHILS # (AUTO) 7.7 10^3/uL (1.8-7.8); NEUTROPHILS % (AUTO) 73 % (42-75); PLATELET COUNT 205 10^3/uL (130-400); WHITE BLOOD COUNT 10.6 10^3/uL (4.3-11.0)
[2022-08-18] MEDS ORDERED: PRENATAL VITAMIN 1 EA TAB PO SCH (07:00)
[2022-08-18] MEDS ORDERED: LABETALOL 200 MG (NORMODYNE) TAB PO SCH (08:00)
[2022-08-18 09:00] VITALS: BP 122/60
[2022-08-18] MEDS ORDERED: amLODIPine 5 MG (NORVASC) TAB PO SCH (09:00)
[2022-08-18] MEDS ORDERED: FERROUS SULF 325 MG (IRON) TAB PO SCH (09:00)
[2022-08-18] MEDS: DOCUSATE SODIUM 100 MG (COLACE) CAP PO SCH (09:08)
[2022-08-18 13:00] VITALS: BP 126/72
[2022-08-18] MEDS ORDERED: AMLO-250 PO (13:13)
[2022-08-18 17:30] VITALS: BP 125/65
[2022-08-18 20:10] VITALS: BP 125/65
== END 2022-08-18 20:10 | disposition home or self-care (01) | DRG 806 ==
LOC: LDRP 06:04
PROVIDERS: ADMIT Obstetrics & Gynecology; ATTEND Obstetrics & Gynecology
PROC: 10E0XZZ Delivery of Products of Conception, External Approach (ICD-10-PCS; principal; 2022-08-17)
PROC: 10907ZC Drainage of Amniotic Fluid, Therapeutic from Products of Conception, Via Natural or Artificial Opening (ICD-10-PCS; 2022-08-17)
DX: O24.425 Gestational diabetes mellitus in childbirth, controlled by oral hypoglycemic drugs (principal); D62 Acute posthemorrhagic anemia; Z37.0 Single live birth; Z3A.38 38 weeks gestation of pregnancy; O90.81 Anemia of the puerperium; Z79.84 Long term (current) use of oral hypoglycemic drugs
CPT/HCPCS: 36415; 81000; 82947; 85025; 86780; 86850; 86900; 86901